=== PATIENT | male | born 1950 | race Caucasian/White ===

== ENCOUNTER 2020-08-17 14:20 | Emergency (ER) | payer OTHER, MEDICARE ==
[~2020-08-17] VITALS: Ht 167.6 cm; Wt 70.0 kg
[~2020-08-17 14:20] MED LIST: PRILOSEC20 MG PO; ULTRAM50 M1 PO
[2020-08-17] MEDS ORDERED: METOPROL TAR25 MG PO (14:47)
[2020-08-17] MEDS ORDERED: OMEPRAZOLE DR20 MG PO (14:48)
[2020-08-17] MEDS ORDERED: LISINOPRIL10 MG PO (14:48)
[2020-08-17] MEDS ORDERED: SYMBICORT1 AE1 IN (14:49)
[2020-08-17] MEDS ORDERED: SPIRIVA HANDIHALER IN (14:49)
[2020-08-17] MEDS ORDERED: PROAIR HFA108 MCG/AC IN (14:50)
[2020-08-17 15:29] VITALS: BP 143/87
== END 2020-08-17 15:41 | disposition home or self-care (01) | DRG 179 ==
LOC: ED 14:20
DX: U07.1 COVID-19 (principal); I10 Essential (primary) hypertension

== ENCOUNTER 2022-10-08 19:14 | Emergency (ER) | payer OTHER, MEDICARE ==
[2022-10-08] VITALS (13 sets, daily range): BP systolic 100–137; BP diastolic 55–82
[~2022-10-08] VITALS: Ht 167.6 cm; Wt 68.0 kg
[~2022-10-08 19:14] MED LIST changes: +LISINOPRIL10 MG PO; +METOPROL TAR25 MG PO; +OMEPRAZOLE DR20 MG PO; +PROAIR HFA108 MCG/AC IN; +SPIRIVA HANDIHALER IN; +SYMBICORT1 AE1 IN
[2022-10-08 20:40] LABS: BASO% 0.1 % (0-3); EOS% 0.8 % (0-8); HEMOGLOBIN 12.9 g/dl (14.0-18.0); IMMATURE GRANULOCYTES 0.1 % (0.0-5.0); LYMPH% 6.7 % (15-41); MEAN CELL VOLUME 93.7 fL CALC (80.0-100.0); MEAN CORPUSCULAR HGB 30.2 pG CALC (26.0-32.0); MEAN CORPUSCULAR HGB CONC 32.3 g/dL CAL (32.0-36.0); MONO% 6.6 % (2-13); NEUT# 6.52 thou/uL (1.82-7.42); NEUT% 85.7 % (42-76); RED BLOOD COUNT 4.27 mill/uL (4.70-6.10); RED CELL DISTRI WIDTH 13.8 % (11.5-15.5)
[2022-10-08 20:49] LABS: ALBUMIN 3.5 g/dL (3.2-5.0); ALKALINE PHOSPHATASE 114 u/l (38-126); ANION GAP 6 (6-22 (CALC)); BILIRUBIN, TOTAL 0.4 mg/dL (0.2-1.3); BUN 12 mg/dL (8-23); BUN/CREATININE RATIO 19 (12-20 (CALC)); CARBON DIOXIDE 29 mmol/l (22-30); CHLORIDE 104 mmol/l (95-108); CREATININE 0.6 mg/dL (0.7-1.3); GFR FOR AFR.AMER. > 60 ML/MIN (>=60 (CALC)); GFR OTHER RACES > 60 ML/MIN (>=60 (CALC)); POTASSIUM 3.5 mmol/l (3.5-5.1); SGOT/AST 26 u/l (19-48); SODIUM 136 mmol/l (137-146); TOTAL PROTEIN 6.3 g/dL (6.3-8.2)
[2022-10-08] MEDS ORDERED: PREDNISONE50 MG PO (21:48)
[2022-10-08] MEDS ORDERED: VIBRAMYCIN100 M2 PO (21:48)
== END 2022-10-08 22:40 | disposition home or self-care (01) | DRG 192 ==
LOC: ED 19:14
PROVIDERS: Family Medicine
DX: J44.1 Chronic obstructive pulmonary disease with (acute) exacerbation (principal); I10 Essential (primary) hypertension; F17.200 Nicotine dependence, unspecified, uncomplicated; Z20.822 Contact with and (suspected) exposure to COVID-19

== ENCOUNTER 2023-02-27 13:05 | Emergency (ER) | payer OTHER, MEDICARE ==
[~2023-02-27] VITALS: Ht 167.6 cm; Wt 61.2 kg
[2023-02-27] VITALS (13 sets, daily range): BP systolic 104–134; BP diastolic 67–85
[~2023-02-27 13:05] MED LIST changes: +PREDNISONE50 MG PO; +VIBRAMYCIN100 M2 PO
[2023-02-27] MEDS ORDERED: ATORVASTATIN CA40 MG PO (13:23)
[2023-02-27 15:31] LABS: BASO% 0.1 % (0-3); EOS% 0.8 % (0-8); HEMATOCRIT 40.8 % (39.0-50.0); HEMOGLOBIN 13.3 g/dl (14.0-18.0); IMMATURE GRANULOCYTES 0.1 % (0.0-5.0); LYMPH% 16.8 % (15-41); MEAN CORPUSCULAR HGB 30.6 pG CALC (26.0-32.0); MEAN CORPUSCULAR HGB CONC 32.6 g/dL CAL (32.0-36.0); NEUT# 5.58 thou/uL (1.82-7.42); NEUT% 73.2 % (42-76); RED BLOOD COUNT 4.34 mill/uL (4.70-6.10); RED CELL DISTRI WIDTH 13.2 % (11.5-15.5)
[2023-02-27 15:45] LABS: ALBUMIN 3.5 g/dL (3.2-5.0); ALKALINE PHOSPHATASE 106 u/l (38-126); BUN 15 mg/dL (8-23); BUN/CREATININE RATIO 21 (12-20 (CALC)); CARBON DIOXIDE 25 mmol/l (22-30); CHLORIDE 107 mmol/l (95-108); CREATININE 0.7 mg/dL (0.7-1.3); GFR FOR AFR.AMER. > 60 ML/MIN (>=60 (CALC)); GFR OTHER RACES > 60 ML/MIN (>=60 (CALC)); SGOT/AST 25 u/l (19-48); SODIUM 136 mmol/l (137-146); TOTAL PROTEIN 6.5 g/dL (6.3-8.2)
[2023-02-27 15:46] LABS: ANION GAP 8 (6-22 (CALC)); BILIRUBIN, TOTAL 0.6 mg/dL (0.2-1.3); POTASSIUM 4.3 mmol/l (3.5-5.1)
[2023-02-27 18:18] LABS: URINE BILIRUBIN - DIPSTICK NEGATIVE (NEGATIVE); URINE BLOOD DIPSTICK NEGATIVE (NEGATIVE); URINE COLOR YELLOW; URINE GLUCOSE - DIPSTICK NEGATIVE (NEGATIVE); URINE KETONE Trace mg/dL (NEGATIVE); URINE LEUK ESTERASE NEGATIVE (NEGATIVE); URINE NITRITE - DIPSTICK NEGATIVE (Negative); URINE PH 5.5 (4.5-8.0); URINE PROTEIN - DIPSTICK NEGATIVE (NEG-TRACE); URINE SPECIFIC GRAVITY 1.025; URINE UROBILINOGEN - DIPSTICK 0.2 E.U./dL (0.2)
[2023-02-27] MEDS ORDERED: METHOCARBAMOL500 MG PO (18:41)
[2023-02-27] MEDS ORDERED: NAPROXEN500 MG PO (18:41)
== END 2023-02-27 19:04 | disposition home or self-care (01) | DRG 605 ==
LOC: ED 13:05
PROVIDERS: Nurse Practitioner
DX: S20.212A Contusion of left front wall of thorax, initial encounter (principal); I10 Essential (primary) hypertension; J44.9 Chronic obstructive pulmonary disease, unspecified; F17.200 Nicotine dependence, unspecified, uncomplicated; W06.XXXA Fall from bed, initial encounter; Y92.003 Bedroom of unspecified non-institutional (private) residence as the place of occurrence of the external cause